=== PATIENT | female | born 1960 | race Caucasian/White ===

== ENCOUNTER 2017-03-16 13:52 | Outpatient (CLI) | payer OTHER ==
--- NOTE | 2017-03-16 16:42 | ULT ---
UNILATERAL LEFT LOWER EXTREMITY VENOUS DOPPLER WITH SPECTRAL ANALYSIS AND COLOR FLOW EVALUATION: 03/16/17 HISTORY: Patient with DVT diagnosed on September 04, 2016. This is followup evaluation. COMPARISON: 09/04/16. FINDINGS: Sears scale, color flow, doppler evaluation, with spectral analysis of the left lower extremity venou s structures is performed with 2D imaging. The left lower extremity common femoral, superficial femo ral, popliteal, posterior tibial, and most proximal greater saphenous and profunda femoral veins are imaged. There is normal lumen compressibility, flow and augmentation of the visualized deep venous structures of the left lower extremity. Popliteal vein on today's exam does appear to demonstrate no rmal lumen compressibility and also normal flow and augmentation. IMPRESSION: 1. No evidence of a DVT involving the visualized deep venous structures left lower extremity. 2. Left lower extremity popliteal vein on today's examination does demonstrates lumen compressi bility which was not noted on prior exam. POS: [facility]
== END 2017-03-16 13:53 | disposition home or self-care (01) ==
LOC: ULT 13:52
PROVIDERS: ATTEND Family Medicine
DX: I82.402 Acute embolism and thrombosis of unspecified deep veins of left lower extremity (principal)

== ENCOUNTER 2017-07-26 09:10 | Outpatient (CLI) | payer OTHER | END 2017-07-26 09:11 | disposition home or self-care (01) | LOC: BICMAMMO 09:10 | PROVIDERS: ATTEND Family Medicine | DX: Z12.31 Encounter for screening mammogram for malignant neoplasm of breast (principal) | CPT/HCPCS: 77063; 77067 ==

== ENCOUNTER 2017-12-29 06:13 | Day surgery (SDC) | payer OTHER ==
[2017-12-28 14:51] VITALS: BMI 27.3
--- NOTE | 2017-12-29 08:26 | HP ---
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 The patient has no specific GI sym ptoms except for chronic acid reflux. Her bowel movements are regular. No hematochezia, no melena. ALLERGIES: ZITHROMAX, SULFA DRUGS. PRIOR MEDICAL ILLNESSES: 1. Chronic acid reflux. 2. Hypothyroidism. PHYSICAL EXAMINATION: VITAL SIGNS: Pulse is 70, blood pressure 130/80. HEENT: Conjunctivae clear. CARDIOVASCULAR SYSTEM: First and second heart sounds are normal. LUNGS: Clear to auscultation. ABDOMEN: Soft to palpate. No organomegaly. No tenderness. No masses. EXTREMITIES: Revealed no edema. ADMITTING DIAGNOSES: 1. Chronic acid reflux, longstanding. 2. Colon cancer screening. PLAN: EGD and colonoscopy.
--- NOTE | 2017-12-29 11:03 | OP ---
DATE OF PROCEDURE: 12/29/2017 SURGEON: Sheridan Christian M.D. OPERATIVE PROCEWDURE: Colonoscopy. PREOPERATIVE DIAGNOSIS: A 57-year-old female undergoing colonoscopy for colon cancer screening. POSTOPERATIVE DIAGNOSES: 1. Mild sigmoid diverticulosis. 2. Redundant tortuous colon. 3. Otherwise, normal colonoscopy. PROCEDURE IN DETAIL: The patient was placed on her left lateral position and was given sedation by Anesthesia Department. A rectal exam was done before the scope was advanced into the rectum. No lesions felt on rectal exam. A Pentax video colonoscope was introduced into the rectum and advanced all the way into the cecum. The prep is very good. The mucosa appears normal throughout the colon. The patient has a redundant, tortuous colon. The appendiceal orifice and the cecum well seen. No pathology seen. Withdrawal from the cecum to ascending colon and hepatic flexure, no pathology seen. The transverse colon, splenic flexure, no pathology seen. The descending colon showed occasional diverticula. The sigmoid colon showed mild diverticular disease. Retroflexion of scope in the rectum showed no pathology. MTDD
--- NOTE | 2017-12-29 11:28 | OP ---
DATE OF PROCEDURE: 12/29/2017 SURGEON: Sheridan Christian M.D. OPERATIVE PROCEDURE: Esophagogastroduodenoscopy with biopsy. PREOPERATIVE DIAGNOSIS: Chronic acid reflux. POSTOPERATIVE DIAGNOSIS: Normal esophagogastroduodenoscopy except for mild mucosal hyperemia in the distal esophagus. PROCEDURE IN DETAIL: The patient was placed on her left lateral position and was given sedation by A nesthesia Department. A Pentax video gastroscope under direct vision was passed down the oropharynx, past the GE junction, into the stomach and subsequently in descending duodenum. Although the patien t has chronic acid reflux, at endoscopy the mucosa appears normal except mild mucosal hyperemia. Thi s was seen over the distal esophagus. Biopsies of this area. The GE junction, no pathology seen. T he fundus, cardia, gastric body, gastric antrum, no lesions seen. The duodenal bulb, descending duod enum, no pathology seen. The stomach was decompressed and the scope removed. DISCHARGE PLANNING: This is a 57-year-old female who came for EGD for acid reflux and colo noscopy for colon cancer screening. The colonoscopy was basically negative except for occasional div erticula over the sigmoid area. The EGD was basically negative. DISCHARGE RECOMMENDATIONS: 1. The patient was advised to call me if she does develops abdominal pain, hematochezia or fever. 2. Continue medicines as before. 3. To come back to clinic in 2 weeks.
[2017-12-29] MEDS ORDERED: Lidocaine 1% PF 5 ML VIAL ONE (13:59)
[2017-12-29] MEDS ORDERED: PROPOFOL 200 MG/20 ML VIAL ONE (13:59)
== END 2017-12-29 12:22 | disposition home or self-care (01) ==
LOC: SDC 06:13
PROVIDERS: ATTEND Internal Medicine Gastroenterology
DX: Z12.11 Encounter for screening for malignant neoplasm of colon (principal); K57.30 Diverticulosis of large intestine without perforation or abscess without bleeding; K21.0 Gastro-esophageal reflux disease with esophagitis; K63.89 Other specified diseases of intestine; E03.9 Hypothyroidism, unspecified; Z88.2 Allergy status to sulfonamides; Z88.1 Allergy status to other antibiotic agents; Z79.899 Other long term (current) drug therapy
CPT/HCPCS: 88305; 88312; 88313; J2001; J2704

== ENCOUNTER 2018-11-17 08:37 | Outpatient (CLI) | payer OTHER ==
--- NOTE | 2018-11-17 09:15 | MMO ---
Bilateral MAMMO Bilat Screen [facility]DI+[facility]BI. CLINICAL HISTORY: Patient is 58 years old and is seen for screening. The patient has no family history of breast cancer. The patient has no personal history of cancer. VIEWS: The views performed were: bilateral craniocaudal with tomosynthesis and bilateral mediolateral oblique with tomosynthesis. FILMS COMPARED: The present examination has been compared to prior imaging studies performed at [facility] on 07/21/2016 and 07/26/2017, and at [facility] on 11/16/2011 and 11/18/2011. MAMMOGRAM FINDINGS: There are scattered fibroglandular densities. There are no suspicious masses, suspicious calcifications, or new areas of architectural distortion. IMPRESSION: THERE IS NO MAMMOGRAPHIC EVIDENCE OF MALIGNANCY. A ROUTINE FOLLOW-UP MAMMOGRAM IN 1 YEAR IS RECOMMENDED. THE RESULTS OF THIS EXAM WERE SENT TO THE PATIENT. ACR BI-RADS Category 1 - Negative MAMMOGRAPHY NOTE: 1. A negative mammogram report should not delay a biopsy if a dominant of clinically suspicious mass is present. 2. Approximately 10% to 15% of breast cancers are not detected by mammography. 3. Adenosis and dense breasts may obscure an underlying neoplasm.
== END 2018-11-17 08:38 | disposition home or self-care (01) ==
LOC: BICMAMMO 08:37
PROVIDERS: ATTEND Family Medicine
DX: Z12.31 Encounter for screening mammogram for malignant neoplasm of breast (principal)
CPT/HCPCS: 77063; 77067

== ENCOUNTER 2019-12-26 09:57 | Outpatient (CLI) | payer OTHER ==
--- NOTE | 2019-12-26 10:56 | MMO ---
Bilateral MAMMO Bilat Screen DDI+[facility]BI. CLINICAL HISTORY: Patient is 59 years old and is seen for screening. The patient has no family history of breast cancer. The patient has no personal history of cancer. VIEWS: The views performed were: bilateral craniocaudal with tomosynthesis and bilateral mediolateral oblique with tomosynthesis. FILMS COMPARED: The present examination has been compared to prior imaging studies performed at [facility] on 07/21/2016, 07/26/2017 and 11/17/2018, and at [facility] on 11/18/2011. This study has been interpreted with the assistance of computer-aided detection. MAMMOGRAM FINDINGS: There are scattered fibroglandular densities. There are no suspicious masses, suspicious calcifications, or new areas of architectural distortion. IMPRESSION: THERE IS NO MAMMOGRAPHIC EVIDENCE OF MALIGNANCY. A ROUTINE FOLLOW-UP MAMMOGRAM IN 1 YEAR IS RECOMMENDED. THE RESULTS OF THIS EXAM WERE SENT TO THE PATIENT. ACR BI-RADS Category 1 - Negative MAMMOGRAPHY NOTE: 1. A negative mammogram report should not delay a biopsy if a dominant of clinically suspicious mass is present. 2. Approximately 10% to 15% of breast cancers are not detected by mammography. 3. Adenosis and dense breasts may obscure an underlying neoplasm. Reported by: MIKY LA MD Electonically Signed: [id number]
== END 2019-12-26 09:58 | disposition home or self-care (01) ==
LOC: BICMAMMO 09:57
PROVIDERS: ATTEND Family Medicine
DX: Z12.31 Encounter for screening mammogram for malignant neoplasm of breast (principal)
CPT/HCPCS: 36415; 77063; 77067; 80053; 80061; 81001; 82306; 83036; 84439; 84443; 84481; 85025; 87624; 88142; G0123

== ENCOUNTER 2021-12-29 10:51 | Outpatient (CLI) | payer OTHER | END 2021-12-29 10:52 | disposition home or self-care (01) | LOC: BICMAMMO 10:51 | PROVIDERS: ATTEND Family Medicine | DX: Z12.31 Encounter for screening mammogram for malignant neoplasm of breast (principal) | CPT/HCPCS: 77063; 77067 ==

== ENCOUNTER 2023-01-01 13:05 | Outpatient (CLI) | payer OTHER | END 2023-01-01 13:06 | disposition home or self-care (01) | LOC: BICMAMMO 13:05 | PROVIDERS: ATTEND Family Medicine | DX: Z12.31 Encounter for screening mammogram for malignant neoplasm of breast (principal) | CPT/HCPCS: 77063; 77067 ==

== ENCOUNTER 2023-01-18 14:32 | Outpatient (CLI) | payer OTHER | END 2023-01-18 14:33 | disposition home or self-care (01) | LOC: BICMAMMO 14:32 | PROVIDERS: ATTEND Family Medicine | DX: Z13.820 Encounter for screening for osteoporosis (principal); M85.89 Other specified disorders of bone density and structure, multiple sites; Z78.0 Asymptomatic menopausal state | CPT/HCPCS: 77080 ==

== ENCOUNTER 2023-01-28 14:06 | Outpatient (CLI) | payer OTHER | END 2023-01-28 14:07 | disposition home or self-care (01) | LOC: RAD 14:06 | PROVIDERS: ATTEND Nurse Practitioner Family | DX: M47.22 Other spondylosis with radiculopathy, cervical region (principal) | CPT/HCPCS: 72050 ==

== ENCOUNTER 2023-02-15 13:38 | Outpatient (CLI) | payer OTHER | END 2023-02-15 13:39 | disposition home or self-care (01) | LOC: BICMRI 13:38 | PROVIDERS: ATTEND Family Medicine | DX: M47.22 Other spondylosis with radiculopathy, cervical region (principal); M48.02 Spinal stenosis, cervical region | CPT/HCPCS: 72141 ==